=== PATIENT | female | born 1945 | race Caucasian/White ===

== ENCOUNTER → 2018-04-14 15:25 | Outpatient (CLI) | payer OTHER, SELFPAY ==
--- NOTE | 2018-04-14 15:28 | BI_ITS ---
MAMMOGRAPHY - BILATERAL SCREENING 3-D SEVEN SYNTHESIS REASON FOR EXAM: Female, 72 years old. Bilateral Screening 3-D tomosynthesis PERTINENT HISTORY: Asymptomatic. No significant family history. TECHNIQUE: 2-D mammograms and 3-D Seven synthesis of the breast (s) were performed. CAD was performed. COMPARISON: 06/17/2016, 06/12/2015. FINDINGS: The breast composition is almost entirely fat. Scattered benign appearing calcifications are again seen. No dense spiculated dominant masses or suspicious microcalcification cluster are identified. No new architectural distortion, asymmetric density, adenopathy, skin thickening or nipple retraction identified. There has been no significant change since the most recent prior study. BI/SCREENING MAMM (CAD), BILAT IMPRESSION: No mammographic sign of malignancy. Routine yearly mammograms recommended. ASSESSMENT CATEGORY: BIRADS Category 2: Benign. A letter regarding these results will be sent to the patient by the facility within 30 days. FOLLOW UP RECOMMENDATION: Yearly follow up mammogram recommended. (A) Negative mammographic results should not deter biopsy as a palpable lesion if present should be followed on clinical grounds and biopsy performed if clinically persistent for 3 months or increasing size. Approximately 10% of breast cancers are not detected by mammography. A normal mammogram should not delay biopsy of a clinically suspicious abnormality. Dense breast tissue mainstream neoplasm. Electronically Signed: Hola Morrow, at 20:15 EDT Tel , Service support ,
== END ==
PROVIDERS: Visit Provider Family Medicine
DX: Z12.31 Encounter for screening mammogram for malignant neoplasm of breast (principal)
CPT/HCPCS: 77063; 77067

== ENCOUNTER → 2019-04-19 08:43 | Outpatient (CLI) | payer OTHER, SELFPAY ==
--- NOTE | 2019-04-19 08:47 | BI_ITS ---
MAMMOGRAPHY - BILATERAL SCREENING REASON FOR EXAM: Female, 73 years old. Routine annual screening examination. PERTINENT HISTORY: Aunt with breast cancer. TECHNIQUE: Digital bilateral breast seven (3D mammographic acquisition) in the CC and MLO projections. 2-D mediolateral oblique (MLO) and craniocaudad (CC) views of both breasts were obtained. CAD: Full Field Digital Mammography with Computer Added Detection was performed. COMPARISON: Comparison is made with prior study dated April 14, 2018 and June 17, 2016. FINDINGS: Breast Composition: There are scattered areas of fibroglandular density. There are no dominant masses or suspicious calcifications. Stable small benign-appearing bilateral axillary lymph nodes. No other significant abnormalities are identified. There has been no significant change since the prior study. BI/SCREEN MAMM (CAD) W/SEVEN BILAT IMPRESSION: Stable bilateral screening mammogram. Yearly follow-up mammogram recommended. (A) ASSESSMENT CATEGORY: BIRADS Category 2: Benign. A letter regarding these results will be sent to the patient by the facility within 30 days. Approximately 10% of breast cancers are not detected by mammography. A normal mammogram should not delay biopsy of a clinically suspicious abnormality. [id number] Electronically Signed: Massimo Austin, at 11:02 EDT , Service support ,
== END ==
PROVIDERS: Family Provider Family Medicine; PCP Family Medicine; Referring Provider Family Medicine; Visit Provider Family Medicine
DX: Z12.31 Encounter for screening mammogram for malignant neoplasm of breast (principal)
CPT/HCPCS: 77063; 77067

== ENCOUNTER → 2020-06-27 12:12 | Outpatient (CLI) | payer MEDICARE, SELFPAY ==
--- NOTE | 2020-06-27 12:18 | BI_ITS ---
MAMMOGRAPHY - BILATERAL SCREENING REASON FOR EXAM: Female, 74 years old. Routine annual screening examination. PERTINENT HISTORY: Aunt with breast cancer. TECHNIQUE: Digital bilateral breast seven (3D mammographic acquisition) in the CC and MLO projections. 2-D mediolateral oblique (MLO) and craniocaudad (CC) views of both breasts were obtained. CAD: Full Field Digital Mammography with Computer Added Detection was performed. COMPARISON: Comparison is made with prior study dated 04/19/2019 04/14/2018. FINDINGS: Breast Composition: There are scattered areas of fibroglandular density. There are no dominant masses or suspicious calcifications. Stable benign appearing bilateral axillary lymph nodes. No other significant abnormalities are identified. There has been no significant change since the prior study. BI/SCREEN MAMM (CAD) W/SEVEN BILAT IMPRESSION: Stable bilateral screening mammogram. Yearly follow-up mammogram recommended. (A) ASSESSMENT CATEGORY: BIRADS Category 2: Benign. A letter regarding these results will be sent to the patient by the facility within 30 days. Approximately 10% of breast cancers are not detected by mammography. A normal mammogram should not delay biopsy of a clinically suspicious abnormality. [id number] Electronically Signed: Massimo Austin, at 13:15 EST , Service support ,
== END ==
PROVIDERS: PCP Family Medicine; Referring Provider Family Medicine; Visit Provider Family Medicine
DX: Z12.31 Encounter for screening mammogram for malignant neoplasm of breast (principal)
CPT/HCPCS: 77063; 77067

== ENCOUNTER 2021-07-15 10:14 | Inpatient (IN) | payer MEDICARE, SELFPAY ==
[2021-07-15] VITALS (11 sets, daily range): BP systolic 108–190; BP diastolic 75–117; PULSE 74–113; RESP 16–25; TEMP 36.5–36.8; O2SAT 92–100; BMI 40.1; BMI 39.9
--- NOTE | 2021-07-15 10:26 | CT_ITS ---
We are attempting to reach an attending provider to discuss findings. An addendum with communication details will be sent when the communication is complete. STUDY: CTA CHEST REASON FOR EXAM: Female, 75 years old. Pe high probability RADIATION DOSAGE (If Supplied By Facility): CTDIvol = ( 13.85 ) mGy, DLP = ( 500.57 ) mGycm TECHNIQUE: The examination was performed with the intravenous administration of IV 100mL Isovue-370. Post-processing of the angiographic images was performed, with multiplanar reformation and 3D reconstruction. Individualized dose optimization techniques were used for this CT. COMPARISON: None. FINDINGS: Large filling defect consistent with pulmonary embolism in the left main pulmonary artery extending to the left lower lobe branches. Pulmonary emboli in the distal right main pulmonary artery extending to the proximal upper and lower lobe branches. No evidence of saddle pulmonary embolism. There is atherosclerotic calcification of the aortic arch with tortuosity. There is no demonstrated aortic dissection. Normal heart and pericardium. There is no demonstrated mediastinal lymphadenopathy or mediastinal mass lesion. Normal hilar regions. Normal visualized trachea and bronchi. Mild stranding in the lower lobes could be due to atelectasis or scarring. 1 cm calcified right lower lobe nodule abutting the diaphragm. There are no pleural effusions. Focal pleural thickening in the right upper lobe. Normal chest wall structures. There are degenerative changes of thoracic spine. The visualized portions of the upper abdomen demonstrate no acute process. 1. CT/CTA Chest W/WO Contrast IMPRESSION: Bilateral pulmonary emboli in the main pulmonary arteries bilaterally larger on the left side. Right lower lobe nodule for which correlation with PET scan is recommended. Mild patchy opacity/atelectasis in both lower lobes. Electronically Signed: Nader Ashraf, at 12:01 EST Tel , Service support ,
--- NOTE | 2021-07-15 10:26 | EKG12_ITS ---
Test Reason : SOB Blood Pressure : / mmHG Vent. Rate : 086 BPM Atrial Rate : 086 BPM P-R Int : 170 ms QRS Dur : 134 ms QT Int : 420 ms P-R-T Axes : 067 107 013 degrees QTc Int : 502 ms Normal sinus rhythm Right bundle branch block T wave abnormality, consider inferior ischemia Abnormal ECG Confirmed by DANTE MICHEL, VALORIE ([id number]), online editor DILIP GOOD ([id number]) on 07/17/2021 1:26:36 PM Referred By: DERIK Confirmed By:VALORIE HOWELL MD
--- NOTE | 2021-07-15 10:27 | EDS_ITS ---
HPI History of Present Illness Chief Complaint: Shortness of Breath Detail of Chief Complaint: Shortness of breath with exertion Informant: patient Narrative Narrative: Patient presents to the emergency department complaint of shortness of breath with exertion notes been ongoing. Patient denies any chest pain. Denies recent travel or surgery. She had a history of SVT with ablation in 2004. Patient denies any weight gain. No history of PE or coronary artery disease. Patient denies fever or cough. Patient states symptoms began about a week ago. She is not vaccinated against COVID-19. [facility] Medical History (Updated 07/15/21 @ 12:[address] Jesse Nicholas, DO) High cholesterol Home Medications atorvastatin 20 mg PO DAILY 07/15/21 [History Last Taken Unknown] levothyroxine 112 mcg PO DAILY 07/15/21 [History Last Taken Unknown] Allergy/AdvReac Type Severity Reaction Status Date / Time No Known Allergies Allergy Verified 07/15/21 10:14 Social History (System 04/18/20 @ 08:55 by Dread Clements) Smoking Status: Never smoker ROS ROS ED Constitutional Constitutional ED: Reports systems reviewed and no addt'l complaints, except as documented; Denies body ache(s), change in weight or chills Eyes Eyes: Denies acute decrease in peripheral vision, change in vision, double vision or loss of vision ENT ENT ED: Reports none; Denies ear pain, lip swelling, loss taste/smell, neck pain, otalgia or sore throat Cardiovascular Cardiovascular: Reports none and racing heartbeat; Denies abdominal pain, chest pain with activity, leg edema, lightheadedness, palpitations, rapid heart rate or syncope Respiratory/Chest Respiratory/Chest: Reports none and dyspnea; Denies change in mental status, dry cough, hemoptysis, shortness of breath at rest or shortness of breath with exertion Gastrointestinal Gastrointestinal: Reports none; Denies abdominal pain, change in stool character, diarrhea, hematemesis, hematochezia, melena, rectal bleeding or vomiting Genitourinary Genitourinary ED: Reports none; Denies abdominal discomfort, anuria, dysuria, genital pain or polyuria Musculoskeletal Musculoskeletal: Reports none; Denies arthralgias, back pain, difficulty walking, extremity pain, muscle weakness or myalgias Integumentary Reports none; Denies abscess or rash Neurologic Neurologic: Reports none; Denies abnormal gait, confusion, focal weakness, frequent falls, headache(s), loss of vision, numbness, paresthesias, radicular pain, vertigo or weakness Psychiatric Psychiatric: Reports systems reviewed and no addt'l complaints, except as docu mented and none; Denies behavioral changes, confusion, difficulty concentrating, hallucinations, suicidal ideation, tactile hallucinations or visual hallucinations Endocrine Endocrinology: Denies none, cold intolerance, excessive sweating, fatigue or heat intolerance Hematologic/Lymphatic Hematologic/Lymphatic: Reports none; Denies anemia, easy bleeding or easy bruising Allergic/Immunologic Allergic/Immunologic ED: Denies as per HPI, none, lip swelling, mouth swelling, throat swelling, tongue swelling or hives EXAM Physical Exam Const Vital Signs: 07/15/21 10:15 07/15/21 10:49 07/15/21 12:17 Temperature 97.8 F Temperature Source Temporal Pulse Rate 113 H 78 Respiratory Rate 25 H 18 Respiratory Effort Non-Labored Blood Pressure 190/117 H 108/75 Blood Pressure Mean 141 86 Pulse Ox 95 92 Oxygen Delivery Method Room Air Room Air Room Air Positive well nourished and well developed General Appearance ED: well developed and NAD HEENT Reports TM's clear and moist mucous membranes normocephalic and atraumatic; Negative for trauma or tenderness Tympanic Membrane ED: Yes TM's clear Eyes PERRL and EOMs intact bilaterally General Eye ED: Negative for pale conjunctiva or scleral icterus Neck no lymphadenopathy, supple and no JVD General: Negative for tenderness Chest Wall inspection of chest normal and palpation of chest normal Chest: Negative for tenderness Resp normal respiratory effort and clear to auscultation bilaterally Effort and Inspection: Negative for respiratory distress or pain with movement Auscultation: Negative for rhonchi, wheezes or diminished lung sounds Cardio regular rate, regular rhythm, S1 normal heart sound, S2 normal heart sound and no murmurs Peripheral Pulses: pulses 2+ throughout GI normal to inspection, nondistended, normoactive bowel sounds, soft to palpation, non-tender, non-distended and no masses Back/Spine no CVA tenderness and no thoracic nor lumbar tenderness Extremity Extremity Narrative: Patient has superficial thrombophlebitis over the right lower extremity just inferior to the knee. General Extremety ED: Negative for edema General Extremity: Negative for edema Neuro oriented x3, CN's II-XII intact bilaterally, no sensory deficits noted and gait normal Sensorium / Orientation: awake, alert, oriented to person, oriented to place and oriented to time Motor Exam: strength 5/5 throughout and strength abnormal Psych mental status grossly normal Skin no rashes or lesions noted and no wounds MDM MDM MDM Narrative Medical decision making narrative: IV line established on arrival. Patient was noted to have bilateral large pulmonary emboli in the main pulmonary arteries however there is no saddle embolus. Patient was started on Lovenox subcu. Patient also noted to have a pulmonary nodule in the right lung that measured 1 cm PET scan was recommended to evaluate further. Case will be discussed with hospitalist evaluate patient for admission. With ambulation patient's O2 sat dr opped to 80%. Patient became acutely dyspneic, tachypneic, and tachycardic. Lab Data Attestation: I reviewed the patient's lab results. Labs: Laboratory Results - last 24 hr 07/15/21 07/15/21 07/15/21 10:46 10:46 10:46 WBC 10.6 RBC 4.86 Hgb 15.1 H Hct 44.3 MCV 91.2 MCH 31.1 MCHC 34.1 RDW Std Deviation 42.5 RDW Coeff of Saqib 12.8 Plt Count 228 MPV 9.4 Immature Gran % (Auto) 0.200 Neut % (Auto) 79.5 H Lymph % (Auto) 12.2 L [place] % (Auto) 6.5 Eos % (Auto) 1.1 Baso % (Auto) 0.5 Absolute Neuts (auto) 8.4 H Absolute Lymphs (auto) 1.29 Nucleated RBC % 0 Sodium 143 Potassium 3.7 Chloride 110 H Carbon Dioxide 24.0 Anion Gap 9 BUN 14 Creatinine 0.88 Estim Creat Clear Calc 50.47 Est GFR (MDRD) Af Amer 81 Est GFR (MDRD) Non-Af 67 BUN/Creatinine Ratio 15.9 Glucose 157 H Calcium 9.1 Troponin I High Sens 111 H B-Natriuretic Peptide 94.0 Radiography Diagnostic Testing: Clinical Impression(s) from Imaging Studies Chest CTA 07/15/21 10:26 IMPRESSION: Bilateral pulmonary emboli in the main pulmonary arteries bilaterally larger on the left side. Right lower lobe nodule for which correlation with PET scan is recommended. Mild patchy opacity/atelectasis in both lower lobes. Electronically Signed: Nader Ashraf, at 12:01 EST Tel , Service support , ADDENDUM: 07/15/21 1213 IMPRESSION: Bilateral pulmonary emboli in the main pulmonary arteries bilaterally larger on the left side. Right lower lobe nodule for which correlation with PET scan is recommended. Mild patchy opacity/atelectasis in both lower lobes. N.B. : The above Results were Read Back by Nader Ashraf to Jesse Nicholas MD, and understanding confirmed on 07/15/2021 12:07:01 (ET). Electronically Signed: Nader Ashraf, at 12:01 EST Tel , Service support , EKG Initial EKG: Attestation: I personally reviewed and interpreted this EKG as follows: Comments: This rhythm with a ventricular rate of of 86 bpm with a right bundle branch block and nonspecific ST changes Prior EKG tracings: available for review Prior: Changed Discharge Plan Dx/Rx/DC Orders Clinical Impression: Pulmonary embolism, Exertional dyspnea, Pulmonary nodule 1 cm or greater in diameter Disposition Disposition: Acute Care [facility]
[2021-07-15 10:51] LABS: Absolute Lymphocyte Count 1.29 X10^3/uL (0.83-4.51); Absolute Neutrophil Count 8.4 X10^3/uL (2.0-7.7); Basophil# 0.05 X10^3/uL; Basophil% 0.5 % (0-1); Eosinophil# 0.12 X10^3/uL; Eosinophils% 1.1 % (0-5); Hematocrit 44.3 % (37-47); Hemoglobin 15.1 g/dL (12.0-15.0); Lymphocyte # 1.29 X10^3/ul (0.83-4.51); Lymphocyte % 12.2 % (19-41); Mean Corp Hgb Conc 34.1 g/dL (32-36); Mean Corpuscular Hgb 31.1 pg (27.0-32.0); Mean Corpuscular Volume 91.2 fL (81-99); Mean Platelet Vol. 9.4 fl (6.2-12.0); Monocyte# 0.69 X10^3/uL; Monocyte% 6.5 % (0-10); NRBC Flagged by Analyzer 0 % (0-5); Neutrophil # 8.43 X10^3/uL (2.7-7.7); Neutrophil % 79.5 % (47-70); Platelet Count 228 K/mm3 (150-450); RBC Distribution Width CV 12.8 % (11.6-14.6); RBC Distribution Width SD 42.5 fl (35.1-43.9); Red Blood Count 4.86 M/mm3 (4.2-5.4); White Blood Count 10.6 K/mm3 (4.4-11.0)
[2021-07-15 11:14] LABS: Anion Gap 9 (5-15); BUN 14 mg/dL (7-18); BUN/Creat Ratio 15.9 RATIO (10-20); Calcium,Total 9.1 mg/dL (8.5-10.1); Chloride 110 mmol/L (98-107); Creatinine, Serum 0.88 mg/dL (0.55-1.02); EST Glomerular Filtration Rate 67 mL/min (>60); Est Glom Filt Rate - Afr Amer 81 mL/min (>60); Estimated Creatinine Clearance 50.47 ml/min; Glucose 157 mg/dL (74-106); Potassium 3.7 mmol/L (3.5-5.1); Sodium Level 143 mmol/L (136-145); Troponin-I HS 111 pg/mL (3.0-54.0)
[2021-07-15] MEDS: 0.9% Normal Saline 1,000 ML 150 ML IV (11:41)
[2021-07-15] MEDS: Enoxaparin 120 MG/0.8 ML Syringe 110 MG SC (12:07)
--- NOTE | 2021-07-15 14:04 | PCM.HP.STD ---
HPI - General General Date of Admission: 07/15/21 Date of Service: 07/15/21 Chief Complaint: Shortness of breath - 1 week HPI Narrative SUMMER HAGAN, is a 75 F who presents with progressive shortness of breath ongoing for over a week. Patient has history of hyperlipidemia and GERD. She presented with progressive shortness of breath. Patient was found to be saturating 80% on room air with exertion. She denied any recent travels. There is a strong family history of cancer in the mother and father. Her sister also of brain tumor. Patient's vitals in the ED on arrival were stable except for tachycardia. She also had hypoxia on exertion. CTA of the chest Rocephin for bilateral pulmonary emboli in the main pulmonary arteries bilaterally, larger on the left, a right lower lobe nodule was also found. [facility] Medical History High cholesterol Home Medications atorvastatin 20 mg PO DAILY 07/15/21 [History Last Taken Unknown] levothyroxine 112 mcg PO DAILY 07/15/21 [History Last Taken Unknown] Allergy/AdvReac Type Severity Reaction Status Date / Time No Known Allergies Allergy Verified 07/15/21 10:14 Family History (Updated 07/15/21 @ 17:[address] Jennifer Giron MD) Father Cancer Lung and esophageal cancer Mother Cancer Unknown etiology Sister Cancer Brain tumor Surgical History (Updated 07/15/21 @ 14:17 by Beth Vazquez) History of tonsillectomy and adenoidectomy Social History (Updated 07/15/21 @ 17:[address] Jennifer Giron MD) household members: spouse Smoking Status: Never smoker alcohol intake: never substance use type: does not use ROS ROS Narrative Constitutional: Reports: Malaise, Weakness, Fatigue. Denies: Anorexia, Chills, Fever, Night Sweats, Weight Change Eyes: Denies: Blurred vision, Cataracts, Conjunctivae Inflammation, Pain, Redness, Vision Change HEENT: Denies: Difficulty Hearing, Difficulty Swallowing, Head Aches, Hearing Changes, Sinus Congestion, Sinus Drainage Cardiovascular: Denies: Chest Pain, Orthopnea, Palpitations Respiratory: Denies: Cough, Shortness of breath at rest, Sputum production Gastrointestinal: Denies: Abdominal Pain, Nausea, Vomiting Genitourinary: Denies: Dysuria Musculoskeletal: Denies: Joint Pain, Joint stiffness, Joint swelling, Joint Tenderness Skin: Denies: Rash, Wounds Neurological: Denies: Numbness, Tingling, Focal weakness Vital Signs Vital Signs Vital Signs: 07/15/21 10:15 07/15/21 10:49 07/15/21 12:17 Temperature 97.8 F Temperature Source Temporal Pulse Rate 113 H 78 Respiratory Rate 25 H 18 Respiratory Effort Non-Labored Blood Pressure 190/117 H 108/75 Blood Pressure Mean 141 86 Pulse Ox 95 92 Oxygen Delivery Method Room Air Room Air Room Air 07/15/21 13:06 Temperature 97.8 F Temperature Source Temporal Pulse Rate 74 Respiratory Rate 16 Respiratory Effort Blood Pressure 108/75 Blood Pressure Mean 86 Pulse Ox 97 Oxygen Delivery Method Room Air Weight Weight: 109.6 kg Body Mass Index (BMI) 40.1 Physical Exam Narrative Physical exam: General: Alert, Oriented x3, Cooperative, No apparent distress, on 2L oxygen HEENT: Atraumatic Oral: Moist Mucosa Neck: Supple Lungs:Diminished to auscultation Cardiovascular: HS I+II, regular, no murmurs Abdomen: Bowel Sounds Present, Soft, Non Tender Extremities: Bilateral leg edema, trace, dilated veins on the legs Results Lab / Micro Data Result Diagrams: 07/15/21 10:46 07/15/21 10:46 Labs: Laboratory Results - last 24 hr 07/15/21 10:46: WBC 10.6, RBC 4.86, Hgb 15.1 H, Hct 44.3, MCV 91.2, MCH 31.1, MCHC 34.1, RDW Std Deviation 42.5, RDW Coeff of Saqib 12.8, Plt Count 228, MPV 9.4, Immature Gran % (Auto) 0.200, Neut % (Auto) 79.5 H, Lymph % (Auto) 12.2 L, [place] % (Auto) 6.5, Eos % (Auto) 1.1, Baso % (Auto) 0.5, Absolute Neuts (auto) 8.4 H, Absolute Lymphs (auto) 1.29, Nucleated RBC % 0 07/15/21 10:46: Sodium 143, Potassium 3.7, Chloride 110 H, Carbon Dioxide 24.0, Anion Gap 9, BUN 14, Creatinine 0.88, Estim Creat Clear Calc 50.47, Est GFR (MDRD) Af Amer 81, Est GFR (MDRD) Non-Af 67, BUN/Creatinine Ratio 15.9, Glucose 157 H, Calcium 9.1, Troponin I High Sens 111 H 07/15/21 10:46: B-Natriuretic Peptide 94.0 Micro: Microbiology 07/15/21 10:39 Nasal Secretion SARS-CoV-2 Antigen (Rapid) - Final Radiology Impression Chest CTA 07/15/21 10:26 IMPRESSION: Bilateral pulmonary emboli in the main pulmonary arteries bilaterally larger on the left side. Right lower lobe nodule for which correlation with PET scan is recommended. Mild patchy opacity/atelectasis in both lower lobes. Electronically Signed: Nader Ashraf, at 12:01 EST Tel , Service support , ADDENDUM: 07/15/21 1213 IMPRESSION: Bilateral pulmonary emboli in the main pulmonary arteries bilaterally larger on the left side. Right lower lobe nodule for which correlation with PET scan is recommended. Mild patchy opacity/atelectasis in both lower lobes. N.B. : The above Results were Read Back by Nader Ashraf to Jesse Nicholas MD, and understanding confirmed on 07/15/2021 12:07:01 (ET). Electronically Signed: Nader Ashraf, at 12:01 EST Tel , Service support , Assessment & Plan Assessment/Plan (1) Pulmonary embolism: (2) Pulmonary nodule 1 cm or greater in diameter: PLAN: 1. Acute hypoxic respiratory failure secondary to acute bilateral PE Patient is not a smoker, no history of malignancy Currently on 2 L of oxygen Started on Lovenox, will continue 2D echo, pulmonology consult 2. Right lower lobe lung nodule more than 1 cm, possible malignant Consult pulmonology, may need CT-guided biopsy 3. Hypothyroidism, continue on synthroid 4. Hyperlipidemia, continue atorvastatin 5. Morbid obesity, BMI 40, lifestyle modification recommended 6. DVT prophylaxis?on therapeutic Lovenox I discussed and explained in details the various types of CODE STATUS-full code, DNR CCA, DNR CC. Patient stated that she has a living will. Patient confirmed that her CODE STATUS is DNR-CCA, no intubation. She does not want to be intubated in the event of a cardiopulmonary arrest Time spent discussing CODE STATUS 17 minutes Charges/Coding Visit Charges Inpatient E&M: 66382 Init Hosp L3 Procedures Hospitalists Procedures: 56388 Advncd Care Plan 30 Min
--- NOTE | 2021-07-15 14:06 | ECHOD_ITS ---
Reason For Study: DYSPNEA/SOB Procedure This was a 2D Doppler, Color Flow transthoracic echocardiogram. The study was technically difficult. Definity deferred due to increased PAP > 60 mmHg. Exam performed portable in patient room. Left Ventricle Normal LV size. Left ventricular systolic function is hyperdynamic. The estimated ejection fraction is 75 %. No evidence for diastolic dysfunction. No regional wall motion abnormalities noted. Right Ventricle Mildly dilated right ventricle. Normal systolic function. Atria Normal left atrium. Normal right atrium. No doppler evidence for ASD. Mitral Valve There is no mitral annular calcification. Normal mitral valve. Trivial mitral valve insufficiency. Tricuspid Valve Normal tricuspid valve. Mild tricuspid valve insufficiency. Right ventricular systolic pressure estimated to be 63 mmHg. Aortic Valve Trisinus/trileaflet aortic valve. Mild focal aortic valve thickening. Pulmonic Valve The pulmonic valve is not well visualized. Trivial pulmonic valve insufficiency. Great Vessels Normal sized aortic root. Pericardium/Pleural No pericardial effusion. MMode/2D Measurements & Calculations LVIDd: 4.3 cm IVSd: 1.0 cm Ao root diam: 2.8 cm LVIDs: 2.4 cm LVPWd: 1.0 cm RVDd: 3.7 cm FS: 42.5 % LAV(MOD-bp): 57.1 ml LA A4 area: 18.7 cm2 LA dimension(2D): 4.0 cm LAV(MOD-bp) Indexed: 26.6 ml/m2 LAV(MOD-sp2): 56.2 ml LAV(MOD-sp4): 53.1 ml RA A4 area: 15.7 cm2 Time Measurements MV dec time: 0.18 sec Doppler Measurements & Calculations MV E max eliazar: 61.4 cm/sec Lat Peak E' Elaizar: 11.5 cm/sec Med Peak E' Eliazar: 8.8 cm/sec MV A max eliazar: 70.1 cm/sec E/E' lat: 5.3 E/E' med: 7.0 MV E/A: 0.88 Ao V2 max: 188.1 cm/sec LV V1 max: 125.4 cm/sec PA V2 max: 99.1 cm/sec Ao max P.2 mmHg LV V1 max P.3 mmHg TR max eliazar: 349.1 cm/sec TR max P.1 mmHg ECHO/Echo Complete Interpretation Summary The study was technically difficult. Left ventricular systolic function is hyperdynamic. The estimated ejection fraction is 75 %. Mildly dilated right ventricle. Trivial mitral valve insufficiency. Mild tricuspid valve insufficiency. Mild focal aortic valve thickening. Trivial pulmonic valve insufficiency. Right ventricular systolic pressure estimated to be 63 mmHg c/w pulmonary hyper tension. No evidence for diastolic dysfunction. Ordering Physician: Jennifer Giron Referring Physician: Alcides Prescott Performed By: Suzanne Rogers, ALEJO, RVT
[2021-07-15] MEDS: 0.9% Normal Saline 1,000 ML 75 ML IV (14:50)
[2021-07-15] MEDS: Enoxaparin 100 MG/ML Syringe 110 MG SC (22:06)
[2021-07-16] VITALS (7 sets, daily range): BP systolic 109–145; BP diastolic 79–85; PULSE 65–78; RESP 16–20; TEMP 36.7–37.1; O2SAT 90–100
--- NOTE | 2021-07-16 00:25 | PCS.PANDOC ---
PANDEMIC DOCUMENTATION INITIATED: Date: 02/19/2021 Time: 190
[2021-07-16 06:54] LABS: Basophil# 0.04 X10^3/uL; Basophil% 0.6 % (0-1); Eosinophils% 5.8 % (0-5); Hematocrit 40.7 % (37-47); Hemoglobin 13.3 g/dL (12.0-15.0); Lymphocyte % 26.1 % (19-41); Mean Corp Hgb Conc 32.7 g/dL (32-36); Mean Corpuscular Hgb 30.1 pg (27.0-32.0); Mean Corpuscular Volume 92.1 fL (81-99); Mean Platelet Vol. 9.3 fl (6.2-12.0); Monocyte# 0.67 X10^3/uL; Monocyte% 9.7 % (0-10); NRBC Flagged by Analyzer 0 % (0-5); Neutrophil # 3.96 X10^3/uL (2.7-7.7); Neutrophil % 57.5 % (47-70); Platelet Count 211 K/mm3 (150-450); RBC Distribution Width SD 43.7 fl (35.1-43.9); Red Blood Count 4.42 M/mm3 (4.2-5.4); White Blood Count 6.9 K/mm3 (4.4-11.0)
[2021-07-16 07:28] LABS: ALB/GLOB Ratio 0.9 RATIO (0.9-2.4); AST(SGOT) 21 U/L (15-37); Alanine Aminotransfer ALT/SGPT 27 U/L (13-56); Alkaline Phosphatase 89 U/L (45-117); Anion Gap 6 (5-15); BUN 12 mg/dL (7-18); BUN/Creat Ratio 16.5 RATIO (10-20); Calcium,Total 8.9 mg/dL (8.5-10.1); Chloride 110 mmol/L (98-107); Creatinine, Serum 0.73 mg/dL (0.55-1.02); EST Glomerular Filtration Rate 83 mL/min (>60); Est Glom Filt Rate - Afr Amer 101 mL/min (>60); Estimated Creatinine Clearance 44.41 ml/min; Globulin 3.4 g/dL (2.2-4.2); Glucose 108 mg/dL (74-106); Potassium 3.8 mmol/L (3.5-5.1); Protein, Total 6.4 g/dL (6.4-8.2); Sodium Level 143 mmol/L (136-145)
[2021-07-16] MEDS: Levothyroxine 112 MCG Tablet PO (08:10)
[2021-07-16] MEDS: Acetaminophen 325 MG Tablet 650 MG PO (08:13)
[2021-07-16] MEDS: Enoxaparin 120 MG/0.8 ML Syringe 110 MG SC (08:23)
--- NOTE | 2021-07-16 11:28 | CASEMGMT ---
KARMEN LEE assessment: Face to face with pt for initial transition planning/care coordination assessment. KARMEN LEE introduced self and role at [facility], pt voices understanding and consents to assessment. Pt is sitting up in chair on RA in no distress. Pt is A/Ox4 and answers all questions appropriately. Care providers, pharmacy, and demographics verified. Presentation: Pt w/ ongoing SOB w/ exertion, worse for last week Admitting dx: Acute PE PCP: [facility] Specialists: Pt states no current specialists. Preferred Pharmacy: [facility]/Mail order Insurance: [facility] Prescription Benefit: [facility] Living Will/HPOA: Pt states does have LW/HPOA and is aware that they are not on file at [facility]. Pt states her , Lamont Curtis, is HPOA. LNOK: Lamont Curtis, ; Danica Ramon, daughter Living Arrangements: Pt lives with in 2 story home and states no concerns at home. Pt is independent with ADL's. Transportation: Pt drives self and states no transportation concerns. DME/HHC: Pt states no current DME or need for any further DME. Pt states no preference for DME provider and [facility] is preferred provider. Pt does not qualify for home oxygen at this time. Pt states no hx of HHC or SNF. Pt states no concerns with going home at time of discharge. Pt is retired. Pt states does not smoke cigarettes or drink ETOH. Pt states no further concerns/needs. CM to follow for any further discharge planning/needs. Advised pt to ask for CM if any further questions/concerns/needs arise, voices understanding. Pt Goal: Home Plan: [place] KARMEN LEE
--- NOTE | 2021-07-16 13:20 | CON.PCM.CC_ITS ---
Assessment & Plan Assessment/Plan (1) Pulmonary embolism: PLAN: RECOMMENDATIONS: 1. Transition from Lovenox to either Xarelto or Eliquis. 2. Perform walking oximetry study prior to consideration for discharge home. 3. Follow-up in the pulmonary medicine clinic in 2 to [address] chest in 3 months. 5. Will sign off. Please call with any additional questions. IMPRESSIONS: 1. Bilateral pulmonary emboli with associated hypoxemia The patient presented to the hospital with shortness of breath and was subsequently found to have bilateral pulmonary emboli along with evidence of pulmonary hypertension on echocardiogram. I would consider these clots to be unprovoked in nature. The patient has no history of venous thromboembolic disease. She has already been initiated on Lovenox therapy. I would recommend that she be transition to either Eliquis or Xarelto for long-term management. Perform walking oximetry study prior to consideration for discharge home. The patient should follow-up in the pulmonary medicine clinic in 2 to 4 weeks post discharge. 2. Incidental pulmonary nodule CTA chest did demonstrate evidence of a right lower lobe pulmonary nodule, which was calcified and adjacent to the diaphragm. The patient would be considered low risk based on her history. I would recommend a follow-up chest CT in 3 months to document stability. 3. Morbid obesity/hyperlipidemia/hypothyroidism Complicates care, management, recovery and prognosis. Continue home medications as indicated. This note was generated with [employer] dictation software. It may contain incorrect words, spelling, and punctuation that were not noted in checking the note before signing. HPI Consult Data Date of Consult: 07/16/21 HPI Narrative Reason for Consultation: Pulmonary embolism HPI Narrative: The patient is a 75-year-old female, with a history as outlined below, who presented to the emergency department on July 15 with progressive dyspnea. The patient denies any known cardiac or pulmonary history. She does not utilize supplemental oxygen at baseline. She denies any recent prolonged immobility or travel. She denies a history of venous thromboembolic disease. The patient is a non-smoker. On presentation to the emergency department, the patient was noted to be afebrile but was tachycardic and tachypneic. In addition, her presenting blood pressure was 190/117 mmHg. Laboratory evaluation was largely unremarkable. Troponin was increased to 111. BNP was unremarkable. Coronavirus PCR was negative. CTA chest demonstrated bilateral pulmonary emboli along with a 1 cm calcified right lower lobe lung nodule adjacent to the diaphragm. The patient was subsequently placed on therapeutic Lovenox and admitted to the hospital. Surface echocardiogram demonstrated a mildly dilated RV with normal systolic function and a right ventricular systolic pressure estimated to be 63 mmHg. [facility] Medical History High cholesterol Home Medications atorvastatin 20 mg PO DAILY 07/15/21 [History Last Taken Unknown] levothyroxine 112 mcg PO DAILY 07/15/21 [History Last Taken Unknown] Allergy/AdvReac Type Severity Reaction Status Date / Time No Known Allergies Allergy Verified 07/15/21 10:14 Family History (Updated 07/15/21 @ 17:[address] Jennifer Giron MD) Father Cancer Lung and esophageal cancer Mother Cancer Unknown etiology Sister Cancer Brain tumor Surgical History (Updated 07/15/21 @ 14:17 by Beth Vazquez) History of tonsillectomy and adenoidectomy Social History (Updated 07/15/21 @ 17:[address] Jennifer Giron MD) household members: spouse Smoking Status: Never smoker alcohol intake: never substance use type: does not use ROS Constitutional Constitutional: Denies chills, fatigue or fever(s) Eyes Eyes: Denies blurry vision or change in vision ENT HEENT: Denies dizziness, epistaxis, hoarseness or loss taste/smell Cardiovascular Cardiovascular: Reports dyspnea; Denies chest pain Respiratory/Chest Respiratory/Chest: Reports dyspnea; Denies cough Gastrointestinal Gastrointestinal: Denies abdominal pain, diarrhea, nausea or vomiting Genitourinary Genitourinary: Denies difficulty urinating Musculoskeletal Musculoskeletal: Denies arthralgias, back pain or joint pain Integumentary Integumentary: Denies lesions, rash or skin ulcer Neurologic Neurologic: Denies abnormal gait Psychiatric Psychiatric: Denies anxiety, depression or hallucinations Endocrine Endocrinology: Denies fatigue Hematologic/Lymphatic Hematologic/Lymphatic: Denies easy bleeding or easy bruising Physical Exam Const alert, oriented x3 and no apparent distress General Appearance: cooperative Nutritional Appearance: morbidly obese HEENT normocephalic, head/scalp atraumatic and moist oral mucous membranes Eyes PERRL, EOMs intact bilaterally and conjunctivae normal Neck supple General: trachea midline Chest inspection of chest normal Resp normal respiratory effort Auscultation: Negative for rales, rhonchi or wheezes Cardio regular rate and regular rhythm GI normal to inspection, nondistended, normoactive bowel sounds Extremity General Extremity: edema; Negative for clubbing Skin no rashes or lesions noted Neuro oriented x3, CN's II-XII intact bilaterally and moves all extremities Psych cooperative and affect normal Lab / Micro Data Result Diagrams: 07/16/21 06:21 07/16/21 06:21 Labs: Laboratory Results - last 24 hr 07/15/21 12:10: COVID-19 ([facility]) Not Detected 07/16/21 06:21: WBC 6.9, RBC 4.42, Hgb 13.3, Hct 40.7, MCV 92.1, MCH 30.1, MCHC 32.7, RDW Std Deviation 43.7, RDW Coeff of Saqib 13.0, Plt Count 211, MPV 9.3, Immature Gran % (Auto) 0.300, Neut % (Auto) 57.5, Lymph % (Auto) 26.1, [place] % (Auto) 9.7, Eos % (Auto) 5.8 H, Baso % (Auto) 0.6, Absolute Neuts (auto) 4.0, Absolute Lymphs (auto) 1.80, Nucleated RBC % 0 07/16/21 06:21: Sodium 143, Potassium 3.8, Chloride 110 H, Carbon Dioxide 27.0, Anion Gap 6, BUN 12, Creatinine 0.73, Estim Creat Clear Calc 44.41, Est GFR (MDRD) Af Amer 101, Est GFR (MDRD) Non-Af 83, BUN/Creatinine Ratio 16.5, Glucose 108 H, Calcium 8.9, Total Bilirubin 1.30 H, AST 21, ALT 27, Alkaline Phosphatase 89, Total Protein 6.4, Albumin 3.0 L, Globulin 3.4, Albumin/Globulin Ratio 0.9 Micro: Microbiology 07/15/21 10:39 Nasal Secretion SARS-CoV-2 Antigen (Rapid) - Final Radiology Impression Echocardiogram 07/15/21 14:06 Interpretation Summary The study was technically difficult. Left ventricular systolic function is hyperdynamic. The estimated ejection fraction is 75 %. Mildly dilated right ventricle. Trivial mitral valve insufficiency. Mild tricuspid valve insufficiency. Mild focal aortic valve thickening. Trivial pulmonic valve insufficiency. Right ventricular systolic pressure estimated to be 63 mmHg c/w pulmonary hypertension. No evidence for diastolic dysfunction. Ordering Physician: Jennifer Giron Referring Physician: Alcides Prescott Performed By: Suzanne Rogers, ALEJO, RVT Charges/Coding Visit Charges Inpatient E&M: 52321 Init Hosp L3
--- NOTE | 2021-07-16 14:27 | DS.PCM_ITS ---
Providers Date of Admission: 07/15/21 Primary Care Physician: Dr. 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 / Pulmonary Medicine Routine Consulting Provider: Pulmonary Medicine aubrie Brogan Reason for Consult: Lung nodule, PE EMERGENT Consult: No MD Notified: Yes Date Notified: 07/15/21 Time Notified: 14:05 Method of Notification: Text Reason For Visit: ACUTE PE Diagnosis Discharge Diagnosis (1) Pulmonary embolism: Status: Acute Code(s): I26.99 - Other pulmonary embolism without acute cor pulmonale Medications at Discharge Home Medications atorvastatin 20 mg PO DAILY 07/15/21 levothyroxine 112 mcg PO DAILY 07/15/21 apixaban [Eliquis DVT-PE Treat 30D Start] 5 mg PO BID #74 tab 07/16/21 Hospital Course Operations None Procedures None Summary of Care Provided Minutes Spent on Discharge: 45 Hospital Course: Patient is a 75-year-old female was admitted through the ED on 07/15/2021 with a complaint of shortness of breath which has been going on for about a week. Shortness of breath had gradually worsened and on admission she was found to be saturating at 80% on room air with exertion. She had a strong family history of cancer in both her parents and has that also of a brain tumor. She denied any history of blood clots and denied any long distance travel.. She had last had a mammogram about 2 years ago and states was scheduled to have 1 soon. Her last one had been normal. CTA of the chest done in the ED showed bilateral pulmonary emboli in the main pulmonary arteries bilaterally larger on the left and a right lower lobe nodule was also evident. She was admitted to be managed for bilateral PE and acute hypoxic respiratory insufficiency she was requiring 2 L of oxygen. BNP was only 94. High- sensitivity troponin was only mildly elevated at 111. She was started on therapeutic Lovenox. Pulmonology evaluated patient and thought that the lung nodule was benign and recommended follow-up CT in 3 months to further evaluate it. She had a walking pulse ox on 07/16/2021 which showed... She was discharged on p.o. 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 Patient was seen and examined prior to discharge. She had no complaints and did not feel short of breath. She denied any chest pain, palpitations, dizziness, nausea or vomiting. The only point that she could think of that could have caused her PEs were some varicose veins that she had in her lower extremities. I counseled her that these were superficial veins and she did not have any calf pain or lower extremity edema as it was unlikely that these were the cause of her PE. Review of systems was otherwise negative. Labs and vitals reviewed. Home meds reviewed and reconciled. Physical Exam Const alert, oriented x3 and no apparent distress General Appearance: cooperative, comfortable and well kempt Orientation / Consciousness: awake Exam Limitations: no limitations HEENT normocephalic, head/scalp atraumatic, hearing grossly normal bilaterally and moist oral mucous membranes Eyes PERRL Neck no lymphadenopathy Resp normal respiratory effort, no retractions, no use of accessory muscles and clear to auscultation bilaterally Resp Narrative: on 2L of oxygen by nasal canula Cardio regular rate, regular rhythm, S1 normal heart sound, S2 normal heart sound and no murmurs GI normal to inspection, nondistended, normoactive bowel sounds and soft to palpation Extremity normal to inspection, full ROM and no clubbing, cyanosis or edema Skin no rashes or lesions noted Neuro oriented x3, CN's II-XII intact bilaterally and moves all extremities Sensorium / Orientation: awake and alert Psych affect normal Weight / BMI Weight Weight: 242 lb 8.136 oz Body Mass Index (BMI) 39.9 ABG / Lab / Microbiology Data Result Diagrams: 07/16/21 06:21 07/16/21 06:21 Laboratory: Laboratory Results - last 24 hr 07/15/21 12:10: COVID-19 ([facility]) Not Detected 07/16/21 06:21: WBC 6.9, RBC 4.42, Hgb 13.3, Hct 40.7, MCV 92.1, MCH 30.1, MCHC 32.7, RDW Std Deviation 43.7, RDW Coeff of Saqib 13.0, Plt Count 211, MPV 9.3, Immature Gran % (Auto) 0.300, Neut % (Auto) 57.5, Lymph % (Auto) 26.1, [place] % (Auto) 9.7, Eos % (Auto) 5.8 H, Baso % (Auto) 0.6, Absolute Neuts (auto) 4.0, Absolute Lymphs (auto) 1.80, Nucleated RBC % 0 07/16/21 06:21: Sodium 143, Potassium 3.8, Chloride 110 H, Carbon Dioxide 27.0, Anion Gap 6, BUN 12, Creatinine 0.73, Estim Creat Clear Calc 44.41, Est GFR (MDRD) Af Amer 101, Est GFR (MDRD) Non-Af 83, BUN/Creatinine Ratio 16.5, Glucose 108 H, Calcium 8.9, Total Bilirubin 1.30 H, AST 21, ALT 27, Alkaline Phosphatase 89, Total Protein 6.4, Albumin 3.0 L, Globulin 3.4, Albumin/Globulin Ratio 0.9 Microbiology: Microbiology 07/15/21 10:39 Nasal Secretion SARS-CoV-2 Antigen (Rapid) - Final Radiography Diagnostic Testing: Radiology Impression Echocardiogram 07/15/21 14:06 Interpretation Summary The study was technically difficult. Left ventricular systolic function is hyperdynamic. The estimated ejection fraction is 75 %. Mildly dilated right ventricle. Trivial mitral valve insufficiency. Mild tricuspid valve insufficiency. Mild focal aortic valve thickening. Trivial pulmonic valve insufficiency. Right ventricular systolic pressure estimated to be 63 mmHg c/w pulmonary hypertension. No evidence for diastolic dysfunction. Ordering Physician: Jennifer Giron Referring Physician: Alcides Prescott Performed By: Suzanne Rogers, ALEJO, RVT D/C Instructions Discharge Diet: Low fat / Low cholesterol Discharge Activity: Return to Normal Activity Weight Bearing Status: Weight bearing as tolerated Call your doctor if you observe: Change in Color, Shortness of breath, Swelling in the ankles and Increased palpitations (irregular heartbeat) Meaningful Use Info Meaningful Use Diagnoses (Choose all that apply): VTE VTE Anticoag overlap given w/in hospital stay or rx'd at dc?: Yes Pt receive overlap for 5 days?: No Reason overlap not ordered, prescribed, or given for 5 days: Procedure Not Indicated Discharge Plan Admission Admit Date/Time: 07/15/21 12:23 Primary Reason for Your Visit: bilateral PE Attending Provider: Suzanne Hodges Primary Care Provider: Alcides Prescott Consulting Providers: Jean Claude Hennnig ; Zachary Xiong ; Sophie Okeefe RESEARCHER Instructions Patient Instructions: Embolism Pulmonary Dc Discharge Orders/Prescriptions Prescriptions: New Eliquis DVT-PE Treat 30D Start 5 mg (74 tabs) tablets,dose pack 5 mg PO BID Qty: 74 RF: 1 Continued atorvastatin 20 mg Tablet 20 mg PO DAILY RF: 0 levothyroxine 112 mcg Capsule 112 mcg PO DAILY RF: 0 Referrals / Follow Up: Zachary Xiong DO [STAFF PHYSICIAN] - Within 2 Weeks Alcides Prescott DO [Primary Care Provider] - Within 2 Weeks Disposition Disposition (needs filled in before D/C Order can be placed): Home, Self Care Charges/Coding Visit Charges Inpatient E&M: 86167 Disch Hosp
--- NOTE | 2021-07-16 15:36 | CASEMGMT ---
Pt to be sent home on Eliquis and med e-scribed to [facility] retail pharmacy. Eliquis 30 day free trial card to be applied and pt aware, voices understanding. Pt voices no further questions/concerns/needs. Franki PERAZA CM
== END 2021-07-16 16:27 | disposition home or self-care (01) | DRG 176 ==
LOC: ED 12:10 → PCU 12:58
PROVIDERS: Admitting Provider Internal Medicine; Emergency Provider Emergency Medicine; PCP Family Medicine; Visit Provider Student in an Organized Health Care Education/Training Program
DX: I26.99 Other pulmonary embolism without acute cor pulmonale (principal); Z68.41 Body mass index [BMI] 40.0-44.9, adult; I27.20 Pulmonary hypertension, unspecified; E66.01 Morbid (severe) obesity due to excess calories; E78.5 Hyperlipidemia, unspecified; K21.9 Gastro-esophageal reflux disease without esophagitis; I80.01 Phlebitis and thrombophlebitis of superficial vessels of right lower extremity; E03.9 Hypothyroidism, unspecified; R09.02 Hypoxemia; Z20.822 Contact with and (suspected) exposure to COVID-19; Z79.890 Hormone replacement therapy; Z79.899 Other long term (current) drug therapy
CPT/HCPCS: 36415; 71275; 80048; 80053; 83880; 84484; 85025; 87426; 87635; 93005; 93306; 97802; 99284; J7030; Q9957; Q9967; A4216; U0003; U0005

== ENCOUNTER 2021-08-24 10:23 | Outpatient (CLI) | payer MEDICARE, SELFPAY ==
--- NOTE | 2021-08-24 10:26 | BI_ITS ---
MAMMOGRAPHY - BILATERAL SCREENING REASON FOR EXAM: Female, 75 years old. Routine annual screening examination. PERTINENT HISTORY: Aunt with breast cancer. TECHNIQUE: Digital bilateral breast seven (3D mammographic acquisition) in the CC and MLO projections. 2-D mediolateral oblique (MLO) and craniocaudad (CC) views of both breasts were obtained. CAD: Full Field Digital Mammography with Computer Added Detection was performed. COMPARISON: Comparison is made with prior study dated 06/27/2020 and 04/19/2019. FINDINGS: Breast Composition: There are scattered areas of fibroglandular density. There are no dominant masses or suspicious calcifications. No other significant abnormalities are identified. There has been no significant change since the prior study. BI/SCRN MAMM (CAD)W/SEVEN BILAT IMPRESSION: Stable bilateral screening mammogram. Yearly follow-up mammogram recommended. (A) ASSESSMENT CATEGORY: BIRADS Category 1: Negative. A letter regarding these results will be sent to the patient by the facility within 30 days. Approximately 10% of breast cancers are not detected by mammography. A normal mammogram should not delay biopsy of a clinically suspicious abnormality. [id number] Electronically Signed: Massimo Austin MD at 12:08 EST ,
== END 2021-08-24 23:59 | disposition home or self-care (01) ==
LOC: OPBI 10:25
PROVIDERS: PCP Family Medicine; Referring Provider Family Medicine; Visit Provider Family Medicine
DX: Z12.31 Encounter for screening mammogram for malignant neoplasm of breast (principal)
CPT/HCPCS: 77063; 77067

== ENCOUNTER 2021-10-12 15:46 | Outpatient (CLI) | payer MEDICARE, SELFPAY ==
--- NOTE | 2021-10-12 15:51 | CT_ITS ---
HISTORY: Nodule follow-up. TECHNIQUE: Helically acquired images were obtained of the chest without contrast. A radiation dose optimization technique was used for this scan. # of images incl. paperwork: [id number]. COMPARISON: 07/15/2021. FINDINGS: LARGE AIRWAYS: Clear. LUNGS: Small calcified granuloma with stable scarring in the right middle lobe. Stable 9 mm pleural-based fatty nodule in the right lower lobe at the right hemidiaphragm with mild scarring in the right lower lobe. PLEURA: No pleural effusion. HEART AND PERICARDIUM: Heart within normal limits in size. No pericardial effusion. Coronary artery calcification present. VESSELS: Thoracic aorta nondilated. MEDIASTINUM AND TIFFANY: Calcified subcarinal and right hilar lymph nodes. UPPER ABDOMEN: Multiple calcified gallstones. BONES: Degenerative change. CT/Chest without Contrast IMPRESSION: No significant interval change. Calcified granuloma in the right middle lobe and calcified lymph nodes in the chest again seen. Stable 9 mm pleural-based fatty nodule adjacent to the right hemidiaphragm. Cholelithiasis. Individualized dose optimization techniques were used for this CT. at 1640 Reported and signed by: Jaquelin Briceno MD Electronically Signed: Jaquelin Briceno MD at 16:38 EDT ,
== END 2021-10-12 23:59 | disposition home or self-care (01) ==
LOC: CT 15:51
PROVIDERS: PCP Family Medicine; Referring Provider Nurse Practitioner Acute Care; Visit Provider Nurse Practitioner Acute Care
DX: R91.1 Solitary pulmonary nodule (principal)
CPT/HCPCS: 71250

== ENCOUNTER → 2021-12-19 | Outpatient (CLI) | payer MEDICARE, SELFPAY ==
--- NOTE | 2021-12-19 13:57 | ECHOD_ITS ---
Reason For Study: PHTN Procedure This was a 2D Doppler, Color Flow transthoracic echocardiogram. The study was technically difficult. Exam performed in department. Left Ventricle Normal LV size. Sigmoid septum. Left ventricular systolic function is hyperdynamic. The estimated ejection fraction is 75 %. No evidence for diastolic dysfunction. No regional wall motion abnormalities noted. Right Ventricle Normal RV size. Normal systolic function. Atria Normal left atrium. Normal right atrium. No doppler evidence for ASD. Mitral Valve There is no mitral annular calcification. Normal mitral valve. Trivial mitral valve insufficiency. Tricuspid Valve Normal tricuspid valve. Trivial tricuspid valve insufficiency. Right ventricular systolic pressure estimated to be 40 mmHg. Aortic Valve Trisinus/trileaflet aortic valve. Mild focal aortic valve calcification. Trivial aortic valve insufficiency. Pulmonic Valve The pulmonic valve is not well visualized. Great Vessels Normal sized aortic root. Pericardium/Pleural No pericardial effusion. MMode/2D Measurements & Calculations Ao root diam: 2.6 cm LAV(MOD-sp4): 45.7 ml LVAd ap4: 22.5 cm2 LVLd ap4: 7.7 cm EDV(MOD-sp4): 54.1 ml EDV(sp4-el): 56.1 ml LVAs ap4: 11.2 cm2 LVLs ap4: 5.8 cm ESV(MOD-sp4): 20.0 ml ESV(sp4-el): 18.4 ml EF(MOD-sp4): 63.1 % EF(sp4-el): 67.3 % SV(MOD-sp4): 34.1 ml SV(sp4-el): 37.7 ml LA A4 area: 17.7 cm2 LA dimension(2D): 4.2 cm RA A4 area: 14.5 cm2 Doppler Measurements & Calculations MV E max eliazar: 47.6 cm/sec Lat Peak E' Eliazar: 9.7 cm/sec Med Peak E' Eliazar: 4.1 cm/sec MV A max eliazar: 52.9 cm/sec E/E' lat: 4.9 E/E' med: 11.7 MV E/A: 0.90 Ao V2 max: 119.4 cm/sec AI max eliazar: 231.5 cm/sec LV V1 max: 103.1 cm/sec Ao max P.7 mmHg AI max P.4 mmHg LV V1 max P.3 mmHg AI dec slope: 315.3 cm/sec2 AI P1/2t: 215.0 msec PA V2 max: 117.5 cm/sec TR max eliazar: 247.9 cm/sec TR max P.6 mmHg ECHO/Echo Complete Interpretation Summary The study was technically difficult. Left ventricular systolic function is hyperdynamic. The estimated ejection fraction is 75 %. Sigmoid septum. Trivial mitral valve insufficiency. Trivial tricuspid valve insufficiency. Mild focal aortic valve calcification. Trivial aortic valve insufficiency. Right ventricular systolic pressure estimated to be 40 mmHg. No evidence for diastolic dysfunction. Ordering Physician: Zachary Xiong Referring Physician: Alcides Prescott Performed By: Renetta Huff RCS
== END | disposition home or self-care (01) ==
PROVIDERS: PCP Family Medicine; Visit Provider Internal Medicine Critical Care Medicine
DX: I26.99 Other pulmonary embolism without acute cor pulmonale (principal); I27.20 Pulmonary hypertension, unspecified
CPT/HCPCS: 93306

== ENCOUNTER → 2022-04-10 | Outpatient (CLI) | payer MEDICARE, SELFPAY ==
[2022-04-10 12:25] LABS: Absolute Lymphocyte Count 1.68 X10^3/uL (0.83-4.51); Absolute Neutrophil Count 4.9 X10^3/uL (2.0-7.7); Basophil# 0.04 X10^3/uL; Basophil% 0.5 % (0-1); Eosinophils% 2.7 % (0-5); Hematocrit 44.6 % (37-47); Hemoglobin 14.8 g/dL (12.0-15.0); Lymphocyte # 1.68 X10^3/ul (0.83-4.51); Lymphocyte % 22.9 % (19-41); Mean Corp Hgb Conc 33.2 g/dL (32-36); Mean Corpuscular Hgb 31.4 pg (27.0-32.0); Mean Corpuscular Volume 94.5 fL (81-99); Mean Platelet Vol. 9.4 fl (6.2-12.0); Monocyte# 0.53 X10^3/uL; Monocyte% 7.2 % (0-10); NRBC Flagged by Analyzer 0 % (0-5); Neutrophil # 4.86 X10^3/uL (2.7-7.7); Neutrophil % 66.3 % (47-70); Platelet Count 322 K/mm3 (150-450); RBC Distribution Width SD 45.8 fl (35.1-43.9); Red Blood Count 4.72 M/mm3 (4.2-5.4); White Blood Count 7.3 K/mm3 (4.4-11.0)
[2022-04-10 12:53] LABS: Vitamin B12 266 pg/mL (211-911)
[2022-04-10 12:59] LABS: T4 Free Direct 1.18 ng/dL (0.76-1.46); Thyroid Stim Hormone (TSH) 2.83 uIU/mL (0.358-3.74)
== END | disposition home or self-care (01) ==
LOC: BFHLAB 10:39
PROVIDERS: PCP Family Medicine; Visit Provider Family Medicine
DX: E03.9 Hypothyroidism, unspecified (principal); E53.8 Deficiency of other specified B group vitamins; Z51.81 Encounter for therapeutic drug level monitoring
CPT/HCPCS: 36415; 82607; 84439; 84443; 85025

== ENCOUNTER → 2022-09-03 | Outpatient (CLI) | payer MEDICARE, SELFPAY ==
--- NOTE | 2022-09-03 10:40 | BI_ITS ---
MAMMOGRAPHY - BILATERAL SCREENING REASON FOR EXAM: Female, 76 years old. Routine annual screening examination. PERTINENT HISTORY: Non-contributory. TECHNIQUE: Digital bilateral breast seven (3D mammographic acquisition) in the CC and MLO projections. 2-D mediolateral oblique (MLO) and craniocaudad (CC) views of both breasts were obtained. CAD: Full Field Digital Mammography with Computer Added Detection was performed. COMPARISON: Comparison is made with prior study dated 08/24/2021. FINDINGS: Breast Composition: There are scattered areas of fibroglandular density. There are no dominant masses or suspicious calcifications. Stable small benign-appearing bilateral axillary lymph nodes. No other significant abnormalities are identified. There has been no significant change since the prior study. BI/SCRN MAMM (CAD)W/SEVEN BILAT IMPRESSION: Stable bilateral screening mammogram. Yearly follow-up mammogram recommended. (A) ASSESSMENT CATEGORY: BIRADS Category 2: Benign. A letter regarding these results will be sent to the patient by the facility within 30 days. Approximately 10% of breast cancers are not detected by mammography. A normal mammogram should not delay biopsy of a clinically suspicious abnormality. [id number] Electronically Signed: Massimo Austin MD at 11:32 EST ,
== END | disposition home or self-care (01) ==
LOC: OPBI 10:38
PROVIDERS: PCP Family Medicine; Visit Provider Family Medicine
DX: Z12.31 Encounter for screening mammogram for malignant neoplasm of breast (principal)
CPT/HCPCS: 77063; 77067

== ENCOUNTER → 2023-09-24 | Outpatient (CLI) | payer MEDICARE, SELFPAY ==
--- NOTE | 2023-09-24 14:41 | BI_ITS ---
MAMMOGRAPHY - BILATERAL SCREENING REASON FOR EXAM: Female, 77 years old. Routine annual screening examination. PERTINENT HISTORY: Non-contributory. TECHNIQUE: Digital bilateral breast seven (3D mammographic acquisition) in the CC and MLO projections. 2-D mediolateral oblique (MLO) and craniocaudad (CC) views of both breasts were obtained. CAD: Full Field Digital Mammography with Computer Added Detection was performed. COMPARISON: Comparison is made with prior study dated September 03, 2022 and August 24, 2021. FINDINGS: Breast Composition: The breasts are almost entirely fatty. There are no dominant masses or suspicious calcifications. Stable bilateral fat-containing axillary lymph nodes. No other significant abnormalities are identified. There has been no significant change since the prior study. BI/SCRN MAMM (CAD)W/SEVEN BILAT IMPRESSION: Stable bilateral screening mammogram. Yearly follow-up mammogram recommended. (A) ASSESSMENT CATEGORY: BIRADS Category 2: Benign. A letter regarding these results will be sent to the patient by the facility within 30 days. Approximately 10% of breast cancers are not detected by mammography. A normal mammogram should not delay biopsy of a clinically suspicious abnormality. [id number] Electronically Signed: Massimo Austin MD at 15:34 EDT ,
== END | disposition home or self-care (01) ==
LOC: OPBI 14:40
PROVIDERS: PCP Family Medicine; Referring Provider Family Medicine; Visit Provider Family Medicine
DX: Z12.31 Encounter for screening mammogram for malignant neoplasm of breast (principal)
CPT/HCPCS: 77063; 77067

== ENCOUNTER → 2024-05-11 | Outpatient (CLI) | payer MEDICARE, SELFPAY ==
[2024-05-11 12:07] LABS: Absolute Lymphocyte Count 1.52 X10^3/uL (0.83-4.51); Absolute Neutrophil Count 3.9 X10^3/uL (2.0-7.7); Basophil# 0.03 X10^3/uL; Basophil% 0.5 % (0-1); Eosinophil# 0.17 X10^3/uL; Eosinophils% 2.8 % (0-5); Hematocrit 44.6 % (37-47); Hemoglobin 14.5 g/dL (12.0-15.0); Lymphocyte # 1.52 X10^3/ul (0.83-4.51); Lymphocyte % 24.7 % (19-41); Mean Corp Hgb Conc 32.5 g/dL (32-36); Mean Corpuscular Hgb 30.1 pg (27.0-32.0); Mean Corpuscular Volume 92.5 fL (81-99); Mean Platelet Vol. 9.3 fl (6.2-12.0); Monocyte# 0.47 X10^3/uL; Monocyte% 7.6 % (0-10); NRBC Flagged by Analyzer 0 % (0-5); Neutrophil # 3.94 X10^3/uL (2.7-7.7); Neutrophil % 64.1 % (47-70); Platelet Count 277 K/mm3 (150-450); RBC Distribution Width CV 12.7 % (11.6-14.6); RBC Distribution Width SD 43.4 fl (35.1-43.9); Red Blood Count 4.82 M/mm3 (4.2-5.4); White Blood Count 6.2 K/mm3 (4.4-11.0)
[2024-05-11 12:27] LABS: AST(SGOT) 15 U/L (15-37); Alanine Aminotransfer ALT/SGPT 23 U/L (13-56); Albumin, Serum 3.4 g/dL (3.2-5.0); Alkaline Phosphatase 84 U/L (45-117); Anion Gap 7 (5-15); BUN 14 mg/dL (7-18); BUN/Creat Ratio 15.5 RATIO (10-20); Chloride 110 mmol/L (98-107); EST Glomerular Filtration Rate 64 mL/min (>60); Est Glom Filt Rate - Afr Amer 78 mL/min (>60); Globulin 3.3 g/dL (2.2-4.2); Glucose 176 mg/dL (74-106); Potassium 3.8 mmol/L (3.5-5.1); Protein, Total 6.7 g/dL (6.4-8.2); Sodium Level 141 mmol/L (136-145); T4 Free Direct 1.11 ng/dL (0.76-1.46)
[2024-05-11 15:38] LABS: Hemoglobin A1c 6.5 % (3.8-5.6)
== END | disposition home or self-care (01) ==
LOC: BFHLAB 10:39
PROVIDERS: PCP Family Medicine; Referring Provider Family Medicine; Visit Provider Family Medicine
DX: E03.9 Hypothyroidism, unspecified (principal); R60.9 Edema, unspecified; R73.9 Hyperglycemia, unspecified; Z51.81 Encounter for therapeutic drug level monitoring
CPT/HCPCS: 36415; 80053; 83036; 84439; 84443; 85025

== ENCOUNTER → 2025-01-17 | Outpatient (CLI) | payer MEDICARE, SELFPAY ==
--- NOTE | 2025-01-17 13:43 | BI_ITS ---
EXAM: SCRN MAMM (CAD)W/SEVEN BILAT DATE: 01/17/2025 CLINICAL HISTORY: F, Age 79 y/o , SCREENING No family history. TECHNIQUE: SCRN MAMM (CAD)W/SEVEN BILAT COMPARISON: Prior exam(s) dated September 24, 2023.. FINDINGS: TISSUE DENSITY: The breasts are almost entirely fatty. Bilateral Breast Mammographic Findings: No significant masses, calcifications or other abnormalities are identified. No suspicious masses, areas of developing architectural distortion, or suspicious calcifications. There has been no significant interval change. BI/SCRN MAMM (CAD)W/SEVEN BILAT IMPRESSION: Stable examination. OVERALL FINAL ASSESSMENT BI-RADS 1: NEGATIVE. RECOMMENDATION: Routine annual follow-up in 1 Year A letter with findings and recommendations will be mailed to the patient. Reading Location: [place] [id number]
== END | disposition home or self-care (01) ==
LOC: OPBI 13:41
PROVIDERS: PCP Family Medicine; Referring Provider Family Medicine; Visit Provider Family Medicine
DX: Z12.31 Encounter for screening mammogram for malignant neoplasm of breast (principal)
CPT/HCPCS: 77063; 77067